=== PATIENT | female | born 1960 | race Caucasian/White ===

== ENCOUNTER → 2016-07-24 | Outpatient (REF) | payer OTHER | LOC: M LAB REF 12:48 | PROVIDERS: ATTEND Physician Assistant | DX: R30.0 Dysuria (principal) ==

== ENCOUNTER → 2017-03-22 | Outpatient (CLI) | payer BC ==
--- NOTE | 2017-03-22 13:31 | REP ---
PA and lateral chest: There are no comparisons. The lung montes are clear. The cardiac size is normal The devonte, mediastinum, and bony thorax are unremarkable. Impression: Negative PA and lateral chest. Signed by Sky Arguello MD 03/22/2017 01:23 P
[2017-03-22 16:44] LABS: BASO # 0.1 10^3/uL (0.0-0.2); BASO % 0.7 % (0.0-1.0); EOS # 0.1 10^3/uL (0.0-0.50); EOS % 1.6 % (0.0-3.0); IMMATURE GRANULOCYTE % 0.2 % (0-0); LYMPH # 2.2 10^3/uL (1.5-4.5); LYMPH % 26.6 % (24.0-44.0); MEAN CORPUSCULAR HEMOGLOBIN 31.1 pg (27.0-33.0); MEAN CORPUSCULAR VOLUME 94.4 fl (80.0-96.0); MONO # 0.5 10^3/uL (0.0-0.8); MONO % 6.5 % (0.0-5.0); NEUTROPHILS # 5.4 10^3/uL (1.8-7.7); NEUTROPHILS % 64.4 % (36.0-66.0); PLATELET COUNT, AUTOMATED 230 10^3/uL (150-450); RED CELL DISTRIBUTION WIDTH 12.7 % (11.5-14.5); WHITE BLOOD COUNT 8.4 10^3/uL (4.0-10.0)
[2017-03-22 17:02] LABS: ALBUMIN 4.1 GM/DL (3.2-5.2); ALBUMIN/GLOBULIN RATIO 1.46 (1.00-1.93); ALKALINE PHOSPHATASE 84 U/L (45-117); ALT/SGPT 34 U/L (12-78); ANION GAP 8 MEQ/L (8-16); AST/SGOT 18 U/L (7-37); BILIRUBIN,TOTAL 0.4 MG/DL (0.2-1.0); BLOOD UREA NITROGEN 16 MG/DL (7-18); CALCIUM LEVEL 9.4 MG/DL (8.5-10.1); CARBON DIOXIDE LEVEL 27 MEQ/L (21-32); CHLORIDE LEVEL 106 MEQ/L (98-107); CREATININE FOR GFR 1.36 MG/DL (0.55-1.02); FERRITIN 52 NG/ML (8-252); GLOMERULAR FILTRATION RATE 42.7 (>51); GLUCOSE, FASTING 85 MG/DL (70-105); SODIUM LEVEL 141 MEQ/L (136-145); T UPTAKE 31 % (30-39); THYROXINE (T4) 12.1 UG/DL (4.5-12.0); TOTAL PROTEIN 6.9 GM/DL (6.4-8.2)
[2017-03-22 17:04] LABS: VITAMIN B12 LEVEL > 2000 PG/ML
[2017-03-22 17:05] LABS: FOLATE 8.8 NG/ML
[2017-03-22 18:34] LABS: ERYTHROCYTE SEDIMENTATION RATE 4 mm/hr (0-30)
[2017-03-25 13:42] LABS: ALBUMIN % 65.4 % (55.8-66.1)
[2017-03-25 13:43] LABS: ALBUMIN 4.51 GM/DL (3.29-5.55); GAMMA GLOBULIN % 10.5 % (11.1-18.8)
[2017-03-26 00:06] LABS: Lyme Disease IgG/IgM Antibodie <0.91 ISR (0.00-0.90); Lyme Disease IgM Ab Quantitati <0.80 index (0.00-0.79)
== END ==
LOC: M WUC 12:37
PROVIDERS: ATTEND Physician Assistant Medical
DX: R53.83 Other fatigue (principal)

== ENCOUNTER 2020-06-21 12:46 | Inpatient (IN) | payer BC, OTHER ==
[~2020-06-21] VITALS: Ht 180.3 cm; Wt 82.1 kg
[2020-06-21] MEDS: LACTOBACILLUS ACIDOPHILUS CAP (BACID) PO SCH (09:00)
[2020-06-21] MEDS ORDERED: DOXY100C PO (13:00)
[2020-06-21] MEDS ORDERED: NS 500 ML IV ONE (13:45)
[2020-06-21 13:56] LABS: BASO % 0.3 % (0.0-1.0); EOS # 0.1 10^3/uL (0.0-0.5); EOS % 0.7 % (0.0-3.0); HEMATOCRIT 44.8 % (36.0-47.0); HEMOGLOBIN 14.7 g/dl (12.0-15.5); LYMPH # 1.9 10^3/uL (1.5-5.0); LYMPH % 13.4 % (24.0-44.0); MEAN CORPUSCULAR HEMOGLOBIN 31.3 pg (27.0-33.0); MEAN CORPUSCULAR HGB CONC 32.8 g/dl (32.0-36.5); MEAN CORPUSCULAR VOLUME 95.3 fl (80.0-96.0); MONO % 6.8 % (2.0-8.0); NEUTROPHILS # 10.9 10^3/uL (1.5-8.5); NEUTROPHILS % 78.4 % (36.0-66.0); PLATELET COUNT, AUTOMATED 218 10^3/uL (150-450); WHITE BLOOD COUNT 13.9 10^3/uL (4.0-10.0)
[2020-06-21 14:35] LABS: ALBUMIN 3.9 GM/DL (3.2-5.2); ALT/SGPT 353 U/L (12-78); BILIRUBIN,DIRECT 0.3 MG/DL (0.0-0.2); BILIRUBIN,TOTAL 0.8 MG/DL (0.2-1.0); CPK CREATINE PHOSPHOKINASE 210 U/L (26-192); LIPASE 4288 U/L (73-393); MB/CK RELATIVE INDEX 2.86 (< OR =4); TOTAL PROTEIN 6.7 GM/DL (6.4-8.2); TROPONIN I < 0.02 NG/ML (< 0.10)
--- NOTE | 2020-06-21 14:44 | REP ---
INDICATION: upper abd pain into back COMPARISON: None. TECHNIQUE: Real time atkins scale ultrasound examination using curved array transducer. FINDINGS: Liver demonstrates normal size and echotexture without focal hepatic lesion identified. The pancreas is normal in appearance. The gallbladder demonstrates cholelithiasis with mild wall thickening to approximately 3.5 mm. No pericholecystic fluid is appreciated. The common bile duct is upper limits of normal at 7.6 mm diameter. The right kidney is normal in reniform shape without hydronephrosis and measures 10.6 x 5.4 x 4.4 cm. No ascites in the visualized right upper quadrant. IMPRESSION: Cholelithiasis. Findings are equivocal for early acute cholecystitis and correlation is required. <Electronically signed by Robert Johnson > 06/21/20 [id number]
[2020-06-21] MEDS ORDERED: ISOVUE-370 76% 100ML VIAL As Ordered ONE (14:48)
[2020-06-21] MEDS ORDERED: SPIR-10 PO (15:11)
[2020-06-21] MEDS ORDERED: MINO100C80 PO (15:11)
--- NOTE | 2020-06-21 15:15 | REP ---
INDICATION: upper abd pain into back, elev lipase. COMPARISON: None TECHNIQUE: Axial contrast-enhanced images from the lung bases to the pubic symphysis using 100 cc Isovue 370 intravenous contrast material. Coronal and sagittal reformations obtained. This CT examination was performed using the following dose reduction techniques: Automated exposure control, adjustment of mA and/or kv according to the patient's size, and the use of iterative reconstruction technique. FINDINGS: Perihepatic inflammatory stranding primarily identified along the inferior aspect of the pancreatic body/tail is consistent with acute pancreatitis. The pancreas itself demonstrates normal homogeneous enhancement. No significant ascites or drainable collection/abscess noted. The gallbladder demonstrates mild wall thickening and subtle stranding which may reflect associated acute cholecystitis. No obvious gallstones are identified by CT evaluation and there is no evidence for biliary ductal dilatation or pancreatic duct dilatation. Liver, spleen, bilateral adrenal glands and kidneys are normal. The enteric system is without obstruction or acute inflammatory process. Sigmoid diverticulosis noted without acute diverticulitis. Pelvis demonstrates normal bladder and age-appropriate uterus/adnexa. No ascites. No free air. No adenopathy. Abdominal aorta without aneurysm or dissection. Musculoskeletal structures demonstrate age-related changes. Lung bases are clear. IMPRESSION: Findings compatible with acute pancreatitis. Possible associated early acute cholecystitis. Diverticulosis. <Electronically signed by Robert Johnson > 06/21/20 [id number]
[2020-06-21 15:22] LABS: MAGNESIUM LEVEL 2.2 MG/DL (1.8-2.4)
[2020-06-21] MEDS ORDERED: ONDANSETRON 4MG/2ML VIAL IV PRN (16:00)
[2020-06-21 16:21] LABS: RSV AMPLIFICATION NEGATIVE (NEGATIVE)
--- NOTE | 2020-06-21 16:21 | HPEPDOC ---
General Date of Admission 06/21/20 Date of Service: Jun 21, 2020 Chief Complaint The patient is a 60-year-old female admitted with a reason for visit of Abd Pain. Source: Patient Exam Limitations: No limitations Timing/Duration: Week(s) Severity: Moderate History of Present Illness Patient is 60 years old female with past history of smoking abuse presented hospital with epigastric pain. Patient stated that for past 4 weeks she has been having intermittent epigastric pain with radiation to the left upper abdominal area. Patient stated that usually she has this pain after fatty food, pain intense 8 out of 10 and associated with nausea and vomiting. Usually pain subsided after 3-4 hours and alleviated by vomiting. She reported that for past 4 weeks she has been having up to 4 episodes of these attacks. Today in the morning she developed severe epigastric pain with constant nausea. In ER patient was found to have leukocytosis of 13.9, total bilirubin 0.8, AST 261, ALT 353. CT abdomen showed Findings compatible with acute pancreatitis. Right upper quadrant ultrasound showed The gallbladder demonstrates cholelithiasis with mild wall thickening to approximately 3.5 mm. No pericholecystic fluid is appreciated. The common bile duct is upper limits of normal at 7.6 mm diameter. When I saw patient she reported that her pain subsided. Dr. Lewis recommended admission for possible cholecystectomy. Of note, patient received treatment with doxycycline for a right otitis media past 3 days. Home Medications Scheduled Doxycycline Hyclate (Doxycycline Hyclate) 100 Mg Capsule, 100 MG PO BID, (Reported) FOR 10 DAYS, STARTED 06/17 Minocycline HCl (Minocycline HCl) 100 Mg Capsule, 100 MG PO DAILY, (Reported) ON HOLD SINCE STARTING DOXYCYCLINE Spironolactone (Spironolactone) 25 Mg Tablet, 75 MG PO DAILY, (Reported) ON HOLD SINCE STARTING DOXYCYCLINE Allergies Coded Allergies: zinc (Verified Adverse Reaction, Mild, vomiting, 06/21/20) Past Medical History Medical History Tobacco abuse Family History Mother from lung cancer Social History * Smoker: current smoker Alcohol: Denies Drugs: denies A-FIB/CHADSVASC A-FIB History Current/History of A-Fib/PAF?: No Current PO Anticoag Therapy: No Review of Systems Constitutional: Denies: Chills, Fever Eyes: Denies: Pain ENT: Reports: Ear Pain; Denies: Head Aches Skin: Denies: Rash, Lesions Pulmonary: Denies: Dyspnea Cardiovascular: Denies: Chest Pain Gastrointestinal: Reports: Nausea, Vomiting, Abdominal Pain Genitourinary: Denies: Dysuria Hematologic: Denies: Bruising Endocrine: Denies: Polydipsia Musculoskeletal: Denies: Neck Pain Neurological: Denies: Weakness Psych: Reports: Mood Normal Physical Examination General Exam: Positive: Alert, Cooperative Eye Exam: Positive: PERRLA ENT Exam: Positive: Atraumatic; Negative: Tympanic Membranes Normal (bulging of right tympanic membrane, inflamed) Neck Exam: Positive: Supple; Negative: JVD Chest Exam: Positive: Clear to auscultation Heart Exam: Positive: Rate Normal Telemetry: Positive: No significant arrhythmia Abdomen Exam: Positive: Normal bowel sounds; Negative: Hepatospenomegaly Extremity Exam: Negative: Clubbing, Cyanosis Skin Exam: Positive: Nl turgor and temperature Neuro Exam: Positive: Strength at 5/5 X4 ext Psych Exam: Positive: Mental status NL Vital Signs Vital Signs Date Time Temp Pulse Resp B/P (MAP) Pulse Ox O2 Delivery O2 Flow Rate FiO2 06/21/20 15:18 97.5 93 18 145/72 (96) 98 Room Air Laboratory Data Labs 24H Laboratory Tests 2 06/21/20 13:10: Immature Granulocyte % (Auto) 0.4, Neutrophils (%) (Auto) 78.4H, Lymphocytes (%) (Auto) 13.4L, Monocytes (%) (Auto) 6.8, Eosinophils (%) (Auto) 0.7, Basophils (%) (Auto) 0.3, Neutrophils # (Auto) 10.9H, Lymphocytes # (Auto) 1.9, Monocytes # (Auto) 1.0H, Eosinophils # (Auto) 0.1, Basophils # (Auto) 0.0, Nucleated Red Blood Cells % (auto) 0.0, Magnesium Level 2.2, Total Bilirubin 0.8, Direct Bilirubin 0.3H, Aspartate Amino Transf (AST/SGOT) 261H, Alanine Aminotransferase (ALT/SGPT) 353H, Alkaline Phosphatase 115, Total Creatine Kinase 210H, Creatine Kinase MB 6.0H, Creatine Kinase MB Relative Index 2.86, Troponin I < 0.02, Total Protein 6.7, Albumin 3.9, Albumin/Globulin Ratio 1.4, Lipase 4288H 06/21/20 13:47: POC Glucose (Misc Panel) 111H, POC Sodium (Misc Panel) 142, POC Potassium (Misc Panel) 3.7, POC Chloride (Misc Panel) 107, POC Total CO2 (Misc Panel) 27.0, POC Blood Urea Nitrogen (Misc Panel 18, POC Ionized Calcium (Misc Panel) 5.1, POC Creatinine (Misc Panel) 1.2, POC Hematocrit (Misc Panel) 45.0 06/21/20 15:02: CBC/BMP Laboratory Tests 06/21/20 13:10 Assessment/Plan Patient is 60 years old female with past history of smoking abuse presented hospital with epigastric pain. Patient stated that for past 4 weeks she has been having intermittent epigastric pain with radiation to the left upper abdominal area. Patient stated that usually she has this pain after fatty food, pain intense 8 out of 10 and associated with nausea and vomiting. Usually pain subsided after 3-4 hours and alleviated by vomiting. She reported that for past 4 weeks she has been having up to 4 episodes of these attacks. Today in the morning she developed severe epigastric pain with constant nausea. In ER patient was found to have leukocytosis of 13.9, total bilirubin 0.8, AST 261, ALT 353. CT abdomen showed Findings compatible with acute pancreatitis. Right upper quadrant ultrasound showed The gallbladder demonstrates cholelithiasis with mild wall thickening to approximately 3.5 mm. No pericholecystic fluid is appreciated. The common bile duct is upper limits of normal at 7.6 mm diameter. When I saw patient she reported that her pain subsided. Dr. Lewis recommended admission for possible cholecystectomy. Of note, patient received treatment with doxycycline for a right otitis media past 3 days. Problems (1) Acute cholecystitis Status: Acute Problem Text: Ultrasound showed The gallbladder demonstrates cholelithiasis with mild wall thickening to approximately 3.5 mm. Findings are equivocal for early acute cholecystitis Patient has mild leukocytosis most likely reactive Pain management (2) Pancreatitis Status: Acute Problem Text: Patient has CT evidence of acute pancreatitis, she has elevated lipase level and left upper abdomen pain Most likely she developed gallstone pancreatitis Pain management Aggressive IV fluid Clear liquid diet for now (3) Gallstones Status: Acute Problem Text: Patient will need cholecystectomy Appreciate/agree with surgical consult (4) Otitis media Status: Acute Problem Text: I will change doxycycline to amoxicillin which is a first line treatment for otitis media Plan / VTE VTE Prophylaxis Ordered?: Yes MONICA CONDE DO Jun 21, 2020 16:21
[2020-06-21 16:43] LABS: HEPATITIS B SURFACE ANTIGEN NEGATIVE (NEGATIVE)
[2020-06-21 17:10] LABS: HEPATITIS C VIRUS ABY INDEX < 0.0 INDEX (<0.8)
[2020-06-21 17:11] LABS: HEPATITIS B CORE ANTIBODY IGM NEGATIVE (NEGATIVE)
[2020-06-21 17:13] LABS: HEPATITIS A ANTIBODY IGM NEGATIVE (NEGATIVE)
[2020-06-21 17:45] VITALS: BP 143/79
[2020-06-21] MEDS: LR 1,000 ML IV SCH ×2 (18:26→22:36)
[2020-06-21] MEDS: NICOTINE 21MG/24HR 1 EA TRANSDERMAL TD PRN (18:44)
--- NOTE | 2020-06-21 19:51 | ECGEPIP ---
[facility] - ED Test Date: 2020-06-21 Pat Name: DANIELLE MINAYA Department: Room: - Gender: Female Coordinator Of Evaluation: : 1960 Requested By: ROBIN Infante PA-C Order Number: [id number] Reading MD: Ricardo West Measurements Intervals [place] Rate: 92 P: 71 MI: 144 QRS: 42 QRSD: 74 T: 63 QT: 418 QTc: 516 Interpretive Statements Normal sinus rhythm Prolonged QT NO PRIORS FOR COMPARISON Electronically Signed on 06-21-2020 19:51:24 EDT by Ricardo West
[2020-06-21] MEDS: AUGMENTIN 875 MG TAB PO SCH (20:05)
[2020-06-21 22:00] VITALS: BP 136/76
[2020-06-22] MEDS: ACETAMINOPHEN TAB 650MG DOSE (2X325MG) PO PRN ×2 (02:12→07:41)
[2020-06-22] MEDS: LR 1,000 ML IV SCH ×5 (02:35→21:16)
[2020-06-22 06:00] VITALS: BP 138/93
[2020-06-22 06:42] LABS: HEMATOCRIT 38.2 % (36.0-47.0); MEAN CORPUSCULAR HEMOGLOBIN 31.6 pg (27.0-33.0); MEAN CORPUSCULAR VOLUME 95.7 fl (80.0-96.0); PLATELET COUNT, AUTOMATED 176 10^3/uL (150-450); RED BLOOD COUNT 3.99 10^6/uL (4.00-5.40); WHITE BLOOD COUNT 10.7 10^3/uL (4.0-10.0)
[2020-06-22 06:49] LABS: HEMOGLOBIN 12.6 g/dl (12.0-15.5)
[2020-06-22 06:59] LABS: ALT/SGPT 198 U/L (12-78); BILIRUBIN,TOTAL 0.7 MG/DL (0.2-1.0); BLOOD UREA NITROGEN 10 MG/DL (7-18); CALCIUM LEVEL 8.6 MG/DL (8.8-10.2); CARBON DIOXIDE LEVEL 27 MEQ/L (21-32); CHLORIDE LEVEL 113 MEQ/L (98-107); CREATININE FOR GFR 0.94 MG/DL (0.55-1.30); GLOMERULAR FILTRATION RATE > 60.0 (>45); GLUCOSE, FASTING 89 MG/DL (70-100); MAGNESIUM LEVEL 1.9 MG/DL (1.8-2.4); SODIUM LEVEL 145 MEQ/L (136-145); TOTAL PROTEIN 5.3 GM/DL (6.4-8.2)
[2020-06-22] MEDS: LACTOBACILLUS ACIDOPHILUS CAP (BACID) PO SCH (07:41)
[2020-06-22] MEDS: AUGMENTIN 875 MG TAB PO SCH ×2 (07:41→21:16)
[2020-06-22] MEDS: ENOXAPARIN 40MG/0.4ML SYRINGE (J1650 PER 10MG) SC SCH (07:42)
--- NOTE | 2020-06-22 12:35 | REP ---
INDICATION: rule out cbd stone. COMPARISON: Comparison sonography June 21, [address] study June 21, 2020.. TECHNIQUE: Axial and coronal T2 weighted scans are obtained. 3D MRCP acquisition is performed the maximum intensity projection images are provided in addition to source images. FINDINGS: There are multiple rounded filling defects in the gallbladder consistent with cholelithiasis. There is 1 large stone and multiple small subcentimeter calculi. No intrahepatic biliary ductal dilation is observed. No focal liver mass lesion is seen. Spleen is unremarkable. There is no evidence of ascites. No pancreatic lesion is observed. On MRCP images, there is a solitary filling defect in the distal common bile duct consistent with choledocholithiasis. On source images there is a question of 2 other punctate filling defects in the common hepatic duct segment. Common hepatic duct measures 6.6 mm in greatest diameter. No pancreatic ductal dilation is observed. Exam is otherwise unremarkable. IMPRESSION: Choledocholithiasis with 1 definite filling defect in the distal choledochocele and 2 possible tiny punctate filling defects in the common hepatic duct segment. Borderline CBD 6.6 mm. Cholelithiasis. Otherwise negative. <Electronically signed by Lupillo Osei > 06/22/20 [id number]
--- NOTE | 2020-06-22 13:15 | CR.PDOC ---
General Date of Consultation: Jun 22, [address] Dr Lewis. HISTORY OF PRESENT ILLNESS: The patient is a 60-year-old female who was admitted with acute cholecystitis and pancreatitis, Gen. surgery was consulted for consideration of cholecystectomy. The patient reports her symptoms began approximately 4 weeks ago when she ate, she developed nausea and vomiting with left upper abdomen discomfort radiating to the epigastric area. Her symptoms lasted about one day and then subsided. She did not seek any medical attention at that time. About 2 weeks ago she had a similar incident where she ate and developed discomfort in the same area and then vomited and her symptoms resolved. Again, she did not seek any medical attention. 2 days ago she had a similar episode recur where she ate, she developed abdominal pain in the left upper radiating to the epigastric area and also through to her back. She states the pain was worse so she went to urgent care. She was advised to seek evaluation in the emergency department, but on the way there she vomited and again her discomfort resolved. She did not go to the emergency department for evaluation at that time. Symptoms are usually associated with eating fatty foods. She presented on the morning of 06/21/20 to the emergency department for evaluation. She was noted to have leukocytosis of 13.9, total bilirubin 0.8, AST 261, ALT 353. CT abdomen indicated findings consistent with acute pancreatitis. Right upper quadrant ultrasound indicated cholelithiasis with wall thickening and common bile duct 7.6 mm. This morning, the patient states she has some mild discomfort in the left upper and epigastric area but otherwise denies nausea, vomiting. Overall she states she feels better. Tolerating clear liquids. She is up out of bed to the bathroom. ALLERGIES: Please see below. HOME MEDICATIONS: Please see below. PAST MEDICAL HISTORY: Tobacco use Cystic acne PAST SURGICAL HISTORY: Denies FAMILY HISTORY: Mother , lung cancer Father with history of pancreatic cancer Siblings with history of lung cancer SOCIAL HISTORY: Smoker Denies alcohol use. REVIEW OF SYSTEMS: As noted in HPI otherwise 10 point review systems unremarkable. PHYSICAL EXAMINATION: VITAL SIGNS: Please see below. GENERAL APPEARANCE: Currently up out of bed, no acute distress noted. HEENT: MMM RESPIRATORY: CTA CARDIOVASCULAR: S1-S2 regular rate and rhythm ABDOMEN: Soft, nondistended, mild tenderness with palpation is noted in the left upper quadrant and epigastric area. EXTREMITIES: Well-perfused, no edema NEUROLOGICAL: Alert and oriented 3. No focal deficits. Labs this morning indicate WBC 10.7. Total bilirubin 0.7 AST 83 ALT 198, LFTs have trended downward. ASSESSMENT/PLAN: Acute pancreatitis associated with cholelithiasis and acute cholecystitis. The patient is reviewed and examined as per Dr. Lewis this morning. Continue with clear liquids. PO Augmentin. Plan is for MRCP this morning to further evaluate for obstructing stone. Discussed with the patient that tentative plan would be for consideration of cholecystectomy Saturday as per Dr. Lewis pending review of MRCP results vs arrange for cholecystectomy as outpatient. Vital Signs/I&O Vital Signs Date Time Temp Pulse Resp B/P (MAP) Pulse Ox O2 Delivery O2 Flow Rate FiO2 06/22/20 06:00 99.3 101 18 138/93 (108) 94 Room Air I&O- Last 24 Hours up to 6 AM 06/22/20 06:00 Intake Total 3650 ml Output Total 1400 ml Balance 2250 ml Laboratory Data Labs 24H Laboratory Tests 2 06/21/20 13:10: Immature Granulocyte % (Auto) 0.4, Neutrophils (%) (Auto) 78.4H, Lymphocytes (%) (Auto) 13.4L, Monocytes (%) (Auto) 6.8, Eosinophils (%) (Auto) 0.7, Basophils (%) (Auto) 0.3, Neutrophils # (Auto) 10.9H, Lymphocytes # (Auto) 1.9, Monocytes # (Auto) 1.0H, Eosinophils # (Auto) 0.1, Basophils # (Auto) 0.0, Nucleated Red Blood Cells % (auto) 0.0, Magnesium Level 2.2, Total Bilirubin 0.8, Direct Bilirubin 0.3H, Aspartate Amino Transf (AST/SGOT) 261H, Alanine Aminotransferase (ALT/SGPT) 353H, Alkaline Phosphatase 115, Total Creatine Kinase 210H, Creatine Kinase MB 6.0H, Creatine Kinase MB Relative Index 2.86, Troponin I < 0.02, Total Protein 6.7, Albumin 3.9, Albumin/Globulin Ratio 1.4, Lipase 4288H, Hepatitis A IgM Antibody NEGATIVE, Hepatitis B Surface Antigen NEGATIVE, Hepatitis B Core IgM Antibody NEGATIVE, Hepatitis C Antibody Index < 0.0 06/21/20 13:47: POC Glucose (Misc Panel) 111H, POC Sodium (Misc Panel) 142, POC Potassium (Misc Panel) 3.7, POC Chloride (Misc Panel) 107, POC Total CO2 (Misc Panel) 27.0, POC Blood Urea Nitrogen (Misc Panel 18, POC Ionized Calcium (Misc Panel) 5.1, POC Creatinine (Misc Panel) 1.2, POC Hematocrit (Misc Panel) 45.0 06/21/20 15:02: Coronavirus (COVID-19)(PCR) NEGATIVE, Influenza Type A (RT-PCR) NEGATIVE, Influenza Type B (RT-PCR) NEGATIVE, Respiratory Syncytial Virus (PCR) NEGATIVE 06/22/20 05:56: Nucleated Red Blood Cells % (auto) 0.0, Magnesium Level 1.9, Total Bilirubin 0.7, Aspartate Amino Transf (AST/SGOT) 83H, Alanine Aminotransferase (ALT/SGPT) 198H, Alkaline Phosphatase 91, Total Protein 5.3#L, Albumin 3.0#L, Albumin/Globulin Ratio 1.3, Anion Gap 5L, Glomerular Filtration Rate > 60.0, Calcium Level 8.6L CBC/BMP Laboratory Tests 06/21/20 13:10 06/22/20 05:56 Microbiology Microbiology 06/21/20 Blood Culture, Received Pending 06/21/20 Blood Culture, Received Pending Allergies Coded Allergies: zinc (Verified Adverse Reaction, Mild, vomiting, 06/21/20) Home Medications Scheduled Doxycycline Hyclate (Doxycycline Hyclate) 100 Mg Capsule, 100 MG PO BID, (Reported) FOR 10 DAYS, STARTED 06/17 Minocycline HCl (Minocycline HCl) 100 Mg Capsule, 100 MG PO DAILY, (Reported) ON HOLD SINCE STARTING DOXYCYCLINE Spironolactone (Spironolactone) 25 Mg Tablet, 75 MG PO DAILY, (Reported) ON HOLD SINCE STARTING DOXYCYCLINE Jeannette Vallecillo Jun 22, 2020 13:15
[2020-06-22 14:00] VITALS: BP 128/75
--- NOTE | 2020-06-22 14:04 | IPNPDOC ---
Text Note Date of Service The patient was seen on 06/22/20. NOTE Subjective: No any events overnight. Patient stated that she has a good appetite and she would like to eat regular food Objective: GENERAL APPEARANCE: NAD HEENT: no scleral icterus, no JVD, EOMI CARDIOVASCULAR: S1S2 LUNGS: CTA ABDOMEN: soft & not tender w palpitation MUSCULOSKELETAL: no cyanosis, no swelling INTEGUMENT: no generalized pallor NEUROLOGICAL: cranial nerve function from 2-12 intact intact, follows commands, speech not dysarthric Assessment/Plan Patient is 60 years old female with past history of smoking abuse presented hospital with epigastric pain. Patient stated that for past 4 weeks she has been having intermittent epigastric pain with radiation to the left upper abdominal area. Patient stated that usually she has this pain after fatty food, pain i ntense 8 out of 10 and associated with nausea and vomiting. Usually pain subsided after 3-4 hours and alleviated by vomiting. She reported that for past 4 weeks she has been having up to 4 episodes of these attacks. Today in the morning she developed severe epigastric pain with constant nausea. In ER patient was found to have leukocytosis of 13.9, total bilirubin 0.8, AST 261, ALT 353. CT abdomen showed Findings compatible with acute pancreatitis. Right upper quadrant ultrasound showed The gallbladder demonstrates cholelithiasis with mild wall thickening to approximately 3.5 mm. No pericholecystic fluid is appreciated. The common bile duct is upper limits of normal at 7.6 mm diameter. When I saw patient she reported that her pain subsided. Dr. Lewis recommended admission for possible cholecystectomy. Of note, patient received treatment with doxycycline for a right otitis media past 3 days. Problems (1) Acute cholecystitis Ultrasound showed The gallbladder demonstrates cholelithiasis with mild wall thickening to approximately 3.5 mm. Findings are equivocal for early acute cholecystitis Patient has mild leukocytosis most likely reactive. Leukocytosis improved today Pain management (2) Pancreatitis Patient has CT evidence of acute pancreatitis, she has elevated lipase level and left upper abdomen pain Most likely she developed gallstone pancreatitis MRCP was done and showed Choledocholithiasis with 1 definite filling defect in the distal choledochocele and 2 possible tiny punctate filling defects in the common hepatic duct segment. Borderline CBD 6.6 mm. Cholelithiasis. Otherwise negative ERCP tomorrow. Laparoscopic cholecystectomy on Saturday Pain management Continue IV fluid Soft mechanical diet (3) Gallstones Patient will need cholecystectomy Appreciate/agree with surgical consult (4) Otitis media I changed doxycycline to amoxicillin which is a first line treatment for otitis media VS,Fishbone, I+O VS, Fishbone, I+O Laboratory Tests 06/22/20 05:56 Vital Signs Date Time Temp Pulse Resp B/P (MAP) Pulse Ox O2 Delivery O2 Flow Rate FiO2 06/22/20 06:00 99.3 101 18 138/93 (108) 94 Room Air I&O- Last 24 Hours up to 6 AM 06/22/20 06:00 Intake Total 3650 ml Output Total 1400 ml Balance 2250 ml MONICA CONDE DO Jun 22, 2020 14:04
[2020-06-22] MEDS: NICOTINE 21MG/24HR 1 EA TRANSDERMAL TD PRN (21:16)
[2020-06-22 22:00] VITALS: BP 143/87
[2020-06-22] MEDS: PERCOCET 5MG/325MG TAB PO PRN (22:05)
[2020-06-23] VITALS (7 sets, daily range): BP systolic 130–151; BP diastolic 74–87
[2020-06-23] MEDS: LR 1,000 ML IV SCH ×3 (05:22→23:36)
[2020-06-23 06:10] LABS: BASO # 0.1 10^3/uL (0.0-0.2); BASO % 0.7 % (0.0-1.0); EOS # 0.2 10^3/uL (0.0-0.5); EOS % 3.3 % (0.0-3.0); HEMATOCRIT 38.5 % (36.0-47.0); HEMOGLOBIN 12.6 g/dl (12.0-15.5); LYMPH # 2.8 10^3/uL (1.5-5.0); LYMPH % 39.7 % (24.0-44.0); MEAN CORPUSCULAR HEMOGLOBIN 31.2 pg (27.0-33.0); MEAN CORPUSCULAR HGB CONC 32.7 g/dl (32.0-36.5); MEAN CORPUSCULAR VOLUME 95.3 fl (80.0-96.0); MONO # 0.6 10^3/uL (0.0-0.8); MONO % 7.9 % (2.0-8.0); NEUTROPHILS # 3.4 10^3/uL (1.5-8.5); NEUTROPHILS % 48.1 % (36.0-66.0); PLATELET COUNT, AUTOMATED 175 10^3/uL (150-450); RED BLOOD COUNT 4.04 10^6/uL (4.00-5.40); WHITE BLOOD COUNT 7.1 10^3/uL (4.0-10.0)
[2020-06-23 06:38] LABS: ALT/SGPT 134 U/L (12-78); BILIRUBIN,TOTAL 0.6 MG/DL (0.2-1.0); BLOOD UREA NITROGEN 9 MG/DL (7-18); CALCIUM LEVEL 8.7 MG/DL (8.8-10.2); CARBON DIOXIDE LEVEL 27 MEQ/L (21-32); CHLORIDE LEVEL 111 MEQ/L (98-107); CREATININE FOR GFR 0.99 MG/DL (0.55-1.30); GLOMERULAR FILTRATION RATE > 60.0 (>45); GLUCOSE, FASTING 78 MG/DL (70-100); MAGNESIUM LEVEL 1.9 MG/DL (1.8-2.4); POTASSIUM SERUM 3.7 MEQ/L (3.5-5.1); SODIUM LEVEL 144 MEQ/L (136-145); TOTAL PROTEIN 5.5 GM/DL (6.4-8.2)
[2020-06-23] MEDS: ENOXAPARIN 40MG/0.4ML SYRINGE (J1650 PER 10MG) SC SCH (08:11)
[2020-06-23] MEDS: AUGMENTIN 875 MG TAB PO SCH ×2 (08:26→21:38)
[2020-06-23] MEDS: PERCOCET 5MG/325MG TAB PO PRN ×2 (08:26→21:39)
[2020-06-23] MEDS: LACTOBACILLUS ACIDOPHILUS CAP (BACID) PO SCH (08:26)
--- NOTE | 2020-06-23 11:17 | IPNPDOC ---
Text Note Date of Service The patient was seen on 06/23/20. NOTE General Surgery. Dr Lewis. HISTORY OF PRESENT ILLNESS: The patient is a 60-year-old female who was admitted with acute cholecystitis and pancreatitis, Gen. surgery was consulted for consideration of cholecystectomy. The patient reports her symptoms began approximately 4 weeks ago when she ate, she developed nausea and vomiting with left upper abdomen discomfort radiating to the epigastric area. Her symptoms lasted about one day and then subsided. She did not seek any medical attention at that time. About 2 weeks ago she had a similar incident where she ate and developed discomfort in the same area and then vomited and her symptoms resolved. Again, she did not seek any medical attention. 2 days ago she had a similar episode recur where she ate, she developed abdominal pain in the left upper radiating to the epigastric area and also through to her back. She states the pain was worse so she went to urgent care. She was advised to seek evaluation in the emergency department, but on the way there she vomited and again her discomfort resolved. She did not go to the emergency department for evaluation at that time. Symptoms are usually associated with eating fatty foods. She presented on the morning of 06/21/20 to the emergency department for evaluation. She was noted to have leukocytosis of 13.9, total bilirubin 0.8, AST 261, ALT 353. CT abdomen indicated findings consistent with acute pancreatitis. Right upper quadrant ultrasound indicated cholelithiasis with wall thickening and common bile duct 7.6 mm. This morning, the patient states she still has some mild discomfort in the left upper and epigastric area but otherwise denies nausea, vomiting. She states she ate a chicken sandwich last evening and had increased pain again. PHYSICAL EXAMINATION: VITAL SIGNS: Please see below. GENERAL APPEARANCE: Currently resting in bed, no acute distress. HEENT: MMM RESPIRATORY: CTA CARDIOVASCULAR: S1-S2 regular rate and rhythm ABDOMEN: Soft, nondistended, patient still with mild tenderness with palpation is noted in the left upper quadrant and epigastric area. EXTREMITIES: Well-perfused, no edema NEUROLOGICAL: Alert and oriented 3. No focal deficits. Labs this morning indicate WBC 7.1. LFTs with continued downward trend. ASSESSMENT/PLAN: Acute pancreatitis associated with cholelithiasis and acute cholecystitis. The patient is reviewed and examined as per Dr. Lewis this morning. MRCP yesterday consistent with filling defects in the common bile duct and hepatic duct, the patient was also seen by Dr. Osorio yesterday with consideration for ERCP today. PO Augmentin. Discussed with the patient that tentative plan would be for cholecystectomy Saturday as per Dr. Lewis. NPO after MN tonight. VS,Fishbone, I+O VS, Fishbone, I+O Laboratory Tests 06/23/20 05:42 Vital Signs Date Time Temp Pulse Resp B/P (MAP) Pulse Ox O2 Delivery O2 Flow Rate FiO2 06/23/20 09:00 16 06/23/20 08:26 Room Air 06/23/20 06:00 98.7 102 140/84 (102) 99 I&O- Last 24 Hours up to 6 AM 06/23/20 06:00 Intake Total 2880 ml Output Total 1200 ml Balance 1680 ml Jeannette Vallecillo Jun 23, 2020 11:17
[2020-06-23] MEDS ORDERED: ISOVUE-300 61% 50ML VIAL As Ordered ONE (13:01)
[2020-06-23] MEDS ORDERED: dexameTHASONE 4 MG/ML 1ML VIAL (J1100 PER 1MG) As Ordered ONE (13:45)
[2020-06-23] MEDS ORDERED: propofoL 200 MG/20 ML VIAL As Ordered ONE (13:45)
[2020-06-23] MEDS ORDERED: ONDANSETRON 4MG/2ML VIAL As Ordered ONE (13:45)
[2020-06-23] MEDS ORDERED: MIDAZOLAM INJ 2MG/2ML VIAL (J2250 PER 1MG) As Ordered ONE (13:45)
[2020-06-23] MEDS ORDERED: LIDOCAINE 2% 100MG/5ML SDV (FOR ANES.) As Ordered ONE (13:45)
[2020-06-23] MEDS ORDERED: fentaNYL 100 MCG/2 ML INJECTION (J3010) As Ordered ONE (13:45)
--- NOTE | 2020-06-23 14:35 | CR.PDOC ---
General Date of Consultation: Jun 22, 2020 Referring Provider: LELIA LEWIS MD Attending Physician: ARIADNA BARBOSA MD Consultation Referring physician / PCP : Dr. Martinez / Dr. Lewis Reason for consult: HPI: 60 years old female patient with chronic tobacco smoking, was admitted to [facility] for epigastric abdominal pain with abnormal liver test and MRCP showing CBD stones and gallstones with pancreatitis. GI was consulted for ERCP. Patient states that for past 4 weeks she has been having intermittent epigastric pain with radiation to the left upper abdominal area, usually precipitated by fatty food, pain intense 8 out of 10 and associated with nausea and vomiting. Usually pain subsided after 3-4 hours and alleviated by vomiting. In ER patient was found to have leukocytosis of 13.9, total bilirubin 0.8, AST 261, ALT 353. Pertinent negative GI symptoms: Patient denies diarrhea, loss of appetite, early satiety or unintentional weight loss, hematemesis, melena or hematochezia. Review of Systems: GI: as stated above CVS: No chest pain, No palpitations, No leg swelling RS: No Shortness of breath, No Wheezing BODY DIE MAKER: No loss of consciousness, No focal motor weakness., Hematology: No easy bruising, No gum bleeding, Musculoskeletal: No joint pain, ambulating well. : No blood inurine, No burning sensation of the urine ENT: No ear discharge/ pain, No dysphagia. Eyes: No photophobia. Skin: No rash Home medications: reviewed. No Plavix and No anticoagulants Medical h/o: As above. Surgical h/o: None on abdomen. Social h/o: Denies Alcohol, smoking, IVDA/ drugs. Family h/o of GI cancers - None Prior Endoscopies: None in [facility]. Prior GI evaluation: None in [facility] Exam: Vitals: reviewed General: Alert and oriented x 3, not in acute distress HEENT: No pallor, no icterus. Normal oropharynx, NO cervical lymphadenopathy. Chest: symmetric with bilateral air entry, CVS: S1, S2 heard, Abdomen: non-distended, soft, non-tender, no rigidity or guarding, no palpable masses, normal bowel sounds heard. Rectal exam: Patient refused / Deferred at this time in view of scheduled colonoscopy. Extremities: pulses palpable, no pedal edema, BODY DIE MAKER: no focal motor or sensory deficits. Moves all extremities Skin: no rash. Labs: reviewed. Imaging: reviewed. CT abdomen showed Findings compatible with acute pancreatitis. Right upper quadrant ultrasound showed The gallbladder demonstrates cholelithiasis with mild wall thickening to approximately 3.5 mm. No pericholecystic fluid is appreciated. The common bile duct is upper limits of normal at 7.6 mm diameter. When I saw patient she reported that her pain subsided. Dr. Lewis recommended admission for possible cholecystectomy. Of note, patient received treatment with doxycycline for a right otitis media past 3 days Impression: -- Epigastric pain with nausea and vomiting labs showing abnormal liver tests and elevated lipase Likely Biliary pancreatitis and Retained CBD stone. Recommendations: -- Patient educated about the prior test results and all questions answered. -- IV fluids prefer ringers lactate for biliary pancreatitis -- NPO for procedure. -- Antibiotics as per Primary team/ surgery. -- Will schedule for ERCP. Patient educated about the procedure(s), indications, risks (including but not limited to acute pancreatitis, bleeding, infection, perforation, anesthesia risks, including ), benefits and all alternatives including conservative measures without intervention. Patient verbalized understanding and consented for the procedure(s). -- Please follow operative note for post procedure recommendations. -- Plan of care educated to patient and patient verbalized understanding and agreed. All questions answered. -- Recommendations communicated to primary team. Patient to follow with PCP upon discharge for routine medical care. Vital Signs/I&O Vital Signs Date Time Temp Pulse Resp B/P (MAP) Pulse Ox O2 Delivery O2 Flow Rate FiO2 06/23/20 09:00 16 06/23/20 08:26 Room Air 06/23/20 06:00 98.7 102 140/84 (102) 99 I&O- Last 24 Hours up to 6 AM 06/23/20 06:00 Intake Total 2880 ml Output Total 1200 ml Balance 1680 ml Laboratory Data Labs 24H Laboratory Tests 2 06/23/20 05:42: Immature Granulocyte % (Auto) 0.3, Neutrophils (%) (Auto) 48.1, Lymphocytes (%) (Auto) 39.7, Monocytes (%) (Auto) 7.9, Eosinophils (%) (Auto) 3.3H, Basophils (%) (Auto) 0.7, Neutrophils # (Auto) 3.4, Lymphocytes # (Auto) 2.8, Monocytes # (Auto) 0.6, Eosinophils # (Auto) 0.2, Basophils # (Auto) 0.1, Nucleated Red Blood Cells % (auto) 0.0, Anion Gap 6L, Glomerular Filtration Rate > 60.0, Calcium Level 8.7L, Magnesium Level 1.9, Total Bilirubin 0.6, Aspartate Amino Transf (AST/SGOT) 37, Alanine Aminotransferase (ALT/SGPT) 134H, Alkaline Phosphatase 81, Total Protein 5.5L, Albumin 3.0L, Albumin/Globulin Ratio 1.2 CBC/BMP Laboratory Tests 06/23/20 05:42 Microbiology Microbiology 06/21/20 Blood Culture - Preliminary, Resulted No growth after 24 hours . All specim... 06/21/20 Blood Culture - Preliminary, Resulted No growth after 24 hours . All specim... Allergies Coded Allergies: zinc (Verified Adverse Reaction, Mild, vomiting, 06/21/20) Home Medications Scheduled Doxycycline Hyclate (Doxycycline Hyclate) 100 Mg Capsule, 100 MG PO BID, (Reported) FOR 10 DAYS, STARTED 06/17 Minocycline HCl (Minocycline HCl) 100 Mg Capsule, 100 MG PO DAILY, (Reported) ON HOLD SINCE STARTING DOXYCYCLINE Spironolactone (Spironolactone) 25 Mg Tablet, 75 MG PO DAILY, (Reported) ON HOLD SINCE STARTING DOXYCYCLINE ARIADNA BARBOSA MD Jun 23, 2020 14:35
[2020-06-23] MEDS ORDERED: ROCURONIUM BROMIDE 50 MG/5 ML VIAL As Ordered ONE (14:36)
[2020-06-23] MEDS ORDERED: GLUCAGON INJ 1MG VIAL As Ordered ONE (15:14)
[2020-06-23] MEDS ORDERED: SUGAMMADEX SODIUM 500 MG/5 ML VIAL (BRIDION) As Ordered ONE (15:21)
--- NOTE | 2020-06-23 15:26 | IPNPDOC ---
Text Note Date of Service The patient was seen on 06/23/20. NOTE Subjective: Patient complains of left upper quadrant pain after eating a sand wich yesterday. In the morning she had very mild left upper pain. No fever, no chills Objective: GENERAL APPEARANCE: NAD HEENT: no scleral icterus, no JVD, EOMI, mild bulging of right tympanic membrane CARDIOVASCULAR: S1S2 LUNGS: CTA ABDOMEN: soft & not tender w palpitation MUSCULOSKELETAL: no cyanosis, no swelling INTEGUMENT: no generalized pallor NEUROLOGICAL: cranial nerve function from 2-12 intact intact, follows commands, speech not dysarthric Assessment/Plan Patient is 60 years old female with past history of smoking abuse presented hospital with epigastric pain. Patient stated that for past 4 weeks she has been having intermittent epigastric pain with radiation to the left upper abdominal area. Patient stated that usually she has this pain after fatty food, pain intense 8 out of 10 and associated with nausea and vomiting. Usually pain subsided after 3-4 hours and alleviated by vomiting. She reported that for past 4 weeks she has been having up to 4 episodes of these attacks. Today in the morning she developed severe epigastric pain with constant nausea. In ER patient was found to have leukocytosis of 13.9, total bilirubin 0.8, AST 261, ALT 353. CT abdomen showed Findings compatible with acute pancreatitis. Right upper quadrant ultrasound showed The gallbladder demonstrates cholelithiasis with mild wall thickening to approximately 3.5 mm. No pericholecystic fluid is a ppreciated. The common bile duct is upper limits of normal at 7.6 mm diameter. When I saw patient she reported that her pain subsided. Dr. Lewis recommended admission for possible cholecystectomy. Of note, patient received treatment with doxycycline for a right otitis media past 3 days. Problems (1) Acute cholecystitis Ultrasound showed The gallbladder demonstrates cholelithiasis with mild wall thickening to approximately 3.5 mm. Findings are equivocal for early acute cholecystitis Patient has mild leukocytosis most likely reactive. Leukocytosis resolved Pain management (2) Pancreatitis Patient has CT evidence of acute pancreatitis, she has elevated lipase level and left upper abdomen pain Most likely she developed gallstone pancreatitis MRCP was done and showed Choledocholithiasis with 1 definite filling defect in the distal choledochocele and 2 possible tiny punctate filling defects in the common hepatic duct segment. Borderline CBD 6.6 mm. Cholelithiasis. Otherwise negative ERCP today. Laparoscopic cholecystectomy on Saturday Pain management Continue IV fluid (3) Gallstones Patient will need cholecystectomy The surgical team will proceed with cholecystectomy on Saturday (4) Otitis media Improved I changed doxycycline to amoxicillin which is a first line treatment for otitis media VS,Fishbone, I+O VS, Fishbone, I+O Laboratory Tests 06/23/20 05:42 Vital Signs Date Time Temp Pulse Resp B/P (MAP) Pulse Ox O2 Delivery O2 Flow Rate FiO2 06/23/20 09:00 16 06/23/20 08:26 Room Air 06/23/20 06:00 98.7 102 140/84 (102) 99 I&O- Last 24 Hours up to 6 AM 06/23/20 06:00 Intake Total 2880 ml Output Total 1200 ml Balance 1680 ml MONICA CONDE Jun 23, 2020 15:26
--- NOTE | 2020-06-23 16:01 | REP ---
INDICATION: ERCP. Choledocholithiasis on MRCP images. COMPARISON: Comparison MRCP study June 22, 2020.. TECHNIQUE: One hundred three views. 82.8 seconds of fluoroscopy is reported. FINDINGS: A sequence of 103 last image hold fluoroscopically obtained spot radiographs of the right upper quadrant document endoscopic cannulation and contrast injection of the common bile duct with balloon catheter manipulation. Some reflux into the gallbladder shows filling defects in the gallbladder consistent with cholelithiasis. No definite filling defects in the common bile duct at the end of the study. IMPRESSION: ERCP images. <Electronically signed by Lupillo Osei > 06/23/20 [id number]
[2020-06-23] MEDS ORDERED: ONDANSETRON 4MG/2ML VIAL IV PRN (16:05)
[2020-06-23] MEDS ORDERED: LR 1,000 ML IV SCH (16:05)
[2020-06-23] MEDS ORDERED: oxyCODONE 5MG TAB PO PRN (16:05)
[2020-06-23] MEDS ORDERED: fentaNYL 100 MCG/2 ML INJECTION (J3010) IV PRN (16:05)
--- NOTE | 2020-06-23 16:08 | ROOR ---
Patient Name: Becky Snyder Procedure Date: 06/23/2020 2:33 PM Date of : 1960 Age: 60 Gender: Female Note Status: Finalized Procedure: ERCP Indications: For therapy of bile duct stone(s) Providers: Sachin Osorio MD Referring MD: Nick Lewis MD Requesting Provider: Medicines: Monitored Anesthesia Care Complications: No immediate complications. Procedure: Pre-Anesthesia Assessment: - Prior to the procedure, a History and Physical was performed, and patient medications and allergies were reviewed. The patient is competent. The risks and benefits of the procedure and the sedation options and risks were discussed with the patient. All questions were answered and informed consent was obtained. Patient identification and proposed procedure were verified by the physician, the nurse and the anesthesiologist in the procedure room. Mental Status Examination: alert and oriented. Airway Examination: normal oropharyngeal airway and neck mobility. Respiratory Examination: clear to auscultation. CV Examination: normal. Prophylactic Antibiotics: The patient does not require prophylactic antibiotics. Prior Anticoagulants: The patient has taken no previous anticoagulant or antiplatelet agents. ASA Grade Assessment: II - A patient with mild systemic disease. After reviewing the risks and benefits, the patient was deemed in satisfactory condition to undergo the procedure. The anesthesia plan was to use monitored anesthesia care (MAC). Immediately prior to administration of medications, the patient was re-assessed for adequacy to receive sedatives. The heart rate, respiratory rate, oxygen saturations, blood pressure, adequacy of pulmonary ventilation, and response to care were monitored throughout the procedure. The physical status of the patient was re-assessed after the procedure. The Duodenoscope was introduced through the mouth, and advanced to the duodenum and used to inject contrast into the bile duct. The ERCP was accomplished without difficulty. The patient tolerated the procedure well. Findings: The licensed massage therapist film was normal. The esophagus was successfully intubated under direct vision. The scope was advanced to a normal major papilla in the descending duodenum without detailed examination of the pharynx, larynx and associated structures, and upper GI tract. The upper GI tract was grossly normal. A 0.035 inch x 260 cm straight Hydra Jagwire was passed into the biliary tree. The short-nosed traction sphincterotome was passed over the guidewire and the bile duct was then deeply cannulated. Contrast was injected. I personally interpreted the bile duct images. Ductal flow of contrast was adequate. Image quality was adequate. Contrast extended to the entire biliary tree. The lower third of the main bile duct contained filling defect(s) thought to be a stone. The main bile duct was mildly dilated and diffusely dilated, with a stone causing an obstruction. The largest diameter was 9 mm. Biliary sphincterotomy was made with a monofilament traction (standard) sphincterotome using ERBE electrocautery. There was no post-sphincterotomy bleeding. The biliary tree was swept with a 9 mm balloon starting at the bifurcation. One stone was removed. No stones remained. Occlusion cholangiogram at the end of the procedure did not show any residual filling defects. Pancreatic duct was neither cannulated nor opacified. Impression: - A filling defect consistent with a stone was seen on the cholangiogram. - The entire main bile duct was mildly dilated, with a stone causing an obstruction. - Choledocholithiasis was found. Complete removal was accomplished by biliary sphincterotomy and balloon extraction. - A biliary sphincterotomy was performed. - The biliary tree was swept. Recommendation: - The patient will be observed post-procedure, until all discharge criteria are met. - Patient has a contact number available for emergencies. The signs and symptoms of potential delayed complications were discussed with the patient. Return to normal activities tomorrow. Written discharge instructions were provided to the patient. - Avoid aspirin and nonsteroidal anti-inflammatory medicines for 5 days. - Clear liquid diet today, then advance as tolerated to high fiber diet. - Surgical consultation for consideration of cholecystectomy at the next available appointment. - Telephone GI clinic if symptomatic. - Return to primary care physician. Procedure Code(s): --- Professional --- 64411, Endoscopic retrograde cholangiopancreatography (ERCP); with removal of calculi/debris from biliary/pancreatic duct(s) 94818, Endoscopic retrograde cholangiopancreatography (ERCP); with sphincterotomy/papillotomy 20189, 26, Endoscopic catheterization of the biliary ductal system, radiological supervision and interpretation Diagnosis Code(s): --- Professional --- K80.51, Calculus of bile duct without cholangitis or cholecystitis with obstruction R93.2, Abnormal findings on diagnostic imaging of liver and biliary tract CPT copyright 2019 [employer]. All rights reserved. The codes documented in this report are preliminary and upon division officer weapons department review may be revised to meet current compliance requirements. Sachin Osorio MD Sachin Osorio MD 06/23/2020 4:07:55 PM Electronically signed by Sachin Osorio MD Number of Addenda: 0 Note Initiated On: 06/23/2020 2:33 PM Estimated Blood Loss: Estimated blood loss: none.
[2020-06-23] MEDS ORDERED: LR 500 ML IV ONE (17:45)
[2020-06-23] MEDS: NICOTINE 21MG/24HR 1 EA TRANSDERMAL TD PRN (18:38)
[2020-06-24 01:30] VITALS: BP 107/70
[2020-06-24 05:30] VITALS: BP 109/70
[2020-06-24 06:20] LABS: BASO % 0.1 % (0.0-1.0); HEMATOCRIT 35.6 % (36.0-47.0); HEMOGLOBIN 11.8 g/dl (12.0-15.5); LYMPH # 1.1 10^3/uL (1.5-5.0); LYMPH % 14.6 % (24.0-44.0); MEAN CORPUSCULAR HEMOGLOBIN 31.8 pg (27.0-33.0); MEAN CORPUSCULAR HGB CONC 33.1 g/dl (32.0-36.5); MONO # 0.4 10^3/uL (0.0-0.8); MONO % 5.5 % (2.0-8.0); NEUTROPHILS # 6.2 10^3/uL (1.5-8.5); NEUTROPHILS % 79.5 % (36.0-66.0); PLATELET COUNT, AUTOMATED 155 10^3/uL (150-450); RED BLOOD COUNT 3.71 10^6/uL (4.00-5.40); WHITE BLOOD COUNT 7.8 10^3/uL (4.0-10.0)
[2020-06-24 06:40] LABS: ALBUMIN 3.1 GM/DL (3.2-5.2); BILIRUBIN,TOTAL 0.4 MG/DL (0.2-1.0); CALCIUM LEVEL 8.6 MG/DL (8.8-10.2); CREATININE FOR GFR 1.02 MG/DL (0.55-1.30); GLOMERULAR FILTRATION RATE 58.7 (>45); MAGNESIUM LEVEL 1.9 MG/DL (1.8-2.4); POTASSIUM SERUM 4.2 MEQ/L (3.5-5.1); TOTAL PROTEIN 6.2 GM/DL (6.4-8.2)
[2020-06-24] MEDS ORDERED: CEPACOL LOZENGE PO PRN (06:45)
[2020-06-24] MEDS: ENOXAPARIN 40MG/0.4ML SYRINGE (J1650 PER 10MG) SC SCH (07:24)
[2020-06-24] MEDS ORDERED: AMPICILLIN SOD/SULBACTAM SOD 3 GM in D5W MINI-BAG PLUS 100 ML IV ONE ×2 (07:30→15:00)
[2020-06-24] MEDS ORDERED: INDOCYANINE GREEN 25MG VIAL (IC-GREEN) IV ONE ×2 (07:30→12:00)
[2020-06-24] MEDS ORDERED: SODIUM CHLORIDE 0.9% INJ 10 ML SYR IV ONE ×2 (07:35→12:00)
[2020-06-24] MEDS: AUGMENTIN 875 MG TAB PO SCH (08:01)
[2020-06-24] MEDS: LR 1,000 ML IV SCH (08:01)
[2020-06-24] MEDS: LACTOBACILLUS ACIDOPHILUS CAP (BACID) PO SCH (08:01)
[2020-06-24] MEDS ORDERED: BUPIVACAINE HCL 0.25% 30ML VIAL As Ordered ONE (10:18)
[2020-06-24] MEDS ORDERED: LIDOCAINE 1% SDV 30ML VIAL As Ordered ONE (10:18)
[2020-06-24] MEDS ORDERED: ONDANSETRON 4MG/2ML VIAL As Ordered ONE (10:30)
[2020-06-24] MEDS ORDERED: ACETAMINOPHEN 1000MG 100ML IV BTL (OFIRMEV) (J0131 PER 10MG) As Ordered ONE (10:30)
[2020-06-24] MEDS ORDERED: dexameTHASONE 4 MG/ML 1ML VIAL (J1100 PER 1MG) As Ordered ONE (10:30)
[2020-06-24] MEDS ORDERED: ROCURONIUM BROMIDE 50 MG/5 ML VIAL As Ordered ONE (10:30)
[2020-06-24] MEDS ORDERED: fentaNYL 100 MCG/2 ML INJECTION (J3010) As Ordered ONE (10:30)
[2020-06-24] MEDS ORDERED: propofoL 200 MG/20 ML VIAL As Ordered ONE (10:30)
[2020-06-24] MEDS ORDERED: MIDAZOLAM INJ 2MG/2ML VIAL (J2250 PER 1MG) As Ordered ONE (10:30)
[2020-06-24] MEDS ORDERED: LIDOCAINE 2% 100MG/5ML SDV (FOR ANES.) As Ordered ONE (10:30)
--- NOTE | 2020-06-24 10:33 | IPNPDOC ---
Text Note Date of Service The patient was seen on 06/24/20. NOTE Patient underwent ERCP with stone extraction and sphincterotomy yesterday. Doing well from this. Denies any severe abdominal discomfort, nausea or vomiting. Afebrile. She seen in the preoperative area. She is scheduled to undergo laparoscopic cholecystectomy today. Vital signs stable On examination She is sitting up on the bed looks very comfortable Skin is warm and dry, no jaundice Anicteric sclerae Abdomen is soft, nondistended, no tenderness Impression and plan: Acute biliary pancreatitis to resolve Choledocholithiasis status post ERCP, stone extraction and sphincterotomy Cholelithiasis Patient is scheduled to undergo laparoscopic cholecystectomy today. I discussed with the patient the details of the proposed procedure, the benefits of performing the procedure, the most common risks on doing the procedure. This may include risks from general anesthesia which will be discussed further by anesthesia, risk from laparoscopy including bowel injury, vascular injury, risk from gallbladder surgery which may include bile duct injury, bile leakage as well as injury to nearby structures. I have given her a chance to ask questions, voice out concerns. Patient has agreed to proceed VS,Betzaida, I+O VS, Betzaida, I+O Laboratory Tests 06/24/20 06:04 Vital Signs Date Time Temp Pulse Resp B/P (MAP) Pulse Ox O2 Delivery O2 Flow Rate FiO2 06/24/20 05:30 98.8 84 20 109/70 (83) 95 Room Air I&O- Last 24 Hours up to 6 AM 06/24/20 06:00 Intake Total 2600 ml Output Total 0 ml Balance 2600 ml LELIA WILDER MD Jun 24, 2020 10:33
[2020-06-24] MEDS ORDERED: LACRILUBE (AKWA TEARS) OPHTH OINT 3.5 GM As Ordered ONE (10:34)
--- NOTE | 2020-06-24 11:01 | IPNPDOC ---
Text Note Date of Service The patient was seen on 06/24/20. NOTE Subjective: No any acute events overnight. ERCP was done yesterday, patient t laurarates procedure well. Objective: GENERAL APPEARANCE: NAD HEENT: no scleral icterus, no JVD, EOMI, no inflammation seen in the right ear CARDIOVASCULAR: S1S2 LUNGS: CTA ABDOMEN: soft & not tender w palpitation MUSCULOSKELETAL: no cyanosis, no swelling INTEGUMENT: no generalized pallor NEUROLOGICAL: cranial nerve function from 2-12 intact intact, follows commands, speech not dysarthric Assessment/Plan Patient is 60 years old female with past history of smoking abuse presented hospital with epigastric pain. Patient stated that for past 4 weeks she has been having intermittent epigastric pain with radiation to the left upper abdominal area. Patient stated that usually she has this pain after fatty food, pain intense 8 out of 10 and associated with nausea and vomiting. Usually pain subsi ded after 3-4 hours and alleviated by vomiting. She reported that for past 4 weeks she has been having up to 4 episodes of these attacks. Today in the morning she developed severe epigastric pain with constant nausea. In ER patient was found to have leukocytosis of 13.9, total bilirubin 0.8, AST 261, ALT 353. CT abdomen showed Findings compatible with acute pancreatitis. Right upper quadrant ultrasound showed The gallbladder demonstrates cholelithiasis with mild wall thickening to approximately 3.5 mm. No pericholecystic fluid is appreciated. The common bile duct is upper limits of normal at 7.6 mm diameter. When I saw patient she reported that her pain subsided. Dr. Lewis recommended admission for possible cholecystectomy. Of note, patient received treatment with doxycycline for a right otitis media past 3 days. Problems (1) Acute cholecystitis Ultrasound showed The gallbladder demonstrates cholelithiasis with mild wall thickening to approximately 3.5 mm. Findings are equivocal for early acute cholecystitis Patient has mild leukocytosis most likely reactive. Leukocytosis resolved after improving of pancreatitis and otitis media Pain management Dr. Lewis will proceed with laparoscopic cholecystectomy today (2) Pancreatitis Patient has CT evidence of acute pancreatitis, she has elevated lipase level and left upper abdomen pain Most likely she developed gallstone pancreatitis MRCP was done and showed Choledocholithiasis with 1 definite filling defect in the distal choledochocele and 2 possible tiny punctate filling defects in the common hepatic duct segment. Borderline CBD 6.6 mm. Cholelithiasis. Otherwise negative ERCP was done on 06/23/20. Laparoscopic cholecystectomy today Pain management (3) Gallstones Patient will need cholecystectomy The surgical team will proceed with cholecystectomy today (4) Otitis media Marked improved today I changed doxycycline to amoxicillin which is a first line treatment for otitis media VS,Fishbone, I+O VS, Fishbone, I+O Laboratory Tests 06/24/20 06:04 Vital Signs Date Time Temp Pulse Resp B/P (MAP) Pulse Ox O2 Delivery O2 Flow Rate FiO2 06/24/20 05:30 98.8 84 20 109/70 (83) 95 Room Air I&O- Last 24 Hours up to 6 AM 06/24/20 06:00 Intake Total 2600 ml Output Total 0 ml Balance 2600 ml MONICA CONDE DO Jun 24, 2020 11:01
[2020-06-24] MEDS ORDERED: ePHEDrine SULFATE 25 MG/5 ML(5MG/ML) SYRINGE As Ordered ONE (11:45)
[2020-06-24] MEDS ORDERED: KETOROLAC 60MG 2ML VIAL As Ordered ONE (11:57)
[2020-06-24] MEDS ORDERED: SUGAMMADEX SODIUM 500 MG/5 ML VIAL (BRIDION) As Ordered ONE (11:57)
[2020-06-24] MEDS ORDERED: oxyCODONE 5MG TAB PO PRN (12:30)
[2020-06-24] MEDS ORDERED: LR 1,000 ML IV SCH (12:30)
[2020-06-24] MEDS ORDERED: fentaNYL 100 MCG/2 ML INJECTION (J3010) IV PRN (12:30)
[2020-06-24] MEDS ORDERED: HYDROMORPHONE HCL 0.5 MG/ 0.5 ML SYRINGE (J1170 PER 1) IV PRN (12:30)
[2020-06-24] MEDS ORDERED: ONDANSETRON 4MG/2ML VIAL IV PRN (12:30)
[2020-06-24 14:00] VITALS: BP 113/70
[2020-06-24] MEDS ORDERED: AMOX875T2 PO (14:33)
[2020-06-24] MEDS ORDERED: ACET1TAB55 PO (14:33)
--- NOTE | 2020-06-24 15:43 | DS.PDOC ---
Discharge Summary General Date of Admission Jun 21, 2020 at 15:58 Date of Discharge 06/24/20 Discharge Summary PROCEDURES PERFORMED DURING STAY: ERCP, laparoscopic cholecystectomy ADMITTING DIAGNOSES: Acute cholecystitis Pancreatitis Gallstones Otitis media DISCHARGE DIAGNOSES: Acute cholecystitis Pancreatitis Gallstones Otitis media COMPLICATIONS/CHIEF COMPLAINT: Gallstones,Pancreatitis. HISTORY OF PRESENT ILLNESS: Patient is 60 years old female with past history of smoking abuse presented hospital with epigastric pain. Patient stated that for past 4 weeks she has been having intermittent epigastric pain with radiation to the left upper abdominal area. Patient stated that usually she has this pain after fatty food, pain intense 8 out of 10 and associated with nausea and vomiting. Usually pain subsided after 3-4 hours and alleviated by vomiting. She reported that for past 4 weeks she has been having up to 4 episodes of these attacks. Today in the morning she developed severe epigastric pain with constant nausea. In ER patient was found to have leukocytosis of 13.9, total bilirubin 0.8, AST 261, ALT 353. CT abdomen showed Findings compatible with acute pancreatitis. Right upper quadrant ultrasound showed The gallbladder demon strates cholelithiasis with mild wall thickening to approximately 3.5 mm. No pericholecystic fluid is appreciated. The common bile duct is upper limits of normal at 7.6 mm diameter. When I saw patient she reported that her pain subsided. Dr. Lewis recommended admission for possible cholecystectomy. Of note, patient received treatment with doxycycline for a right otitis media past 3 days. HOSPITAL COURSE: During the hospital stay following issue addressed (1) Acute cholecystitis Ultrasound showed The gallbladder demonstrates cholelithiasis with mild wall thickening to approximately 3.5 mm. Findings are equivocal for early acute cholecystitis Patient has mild leukocytosis most likely reactive. Leukocytosis resolved after improving of pancreatitis and otitis media Pain management Dr. Lewis did laparoscopic cholecystectomy today. Patient tolerates clear li quid diet well after surgery, no nausea no vomiting (2) Pancreatitis Patient has CT evidence of acute pancreatitis, she has elevated lipase level and left upper abdomen pain Most likely she developed gallstone pancreatitis MRCP was done and showed Choledocholithiasis with 1 definite filling defect in the distal choledochocele and 2 possible tiny punctate filling defects in the common hepatic duct segment. Borderline CBD 6.6 mm. Cholelithiasis. Otherwise negative ERCP was done on 06/23/20. Laparoscopic cholecystectomy today Pain management (3) Gallstones The surgical team proceeded with cholecystectomy today (4) Otitis media Marked improved today I changed doxycycline to amoxicillin which is a first line treatment for otitis media DISCHARGE MEDICATIONS: Please see below. ALLERGIES: Please see below. PHYSICAL EXAMINATION ON DISCHARGE: VITAL SIGNS: Please see below. GENERAL APPEARANCE: NAD HEENT: no scleral icterus, no JVD, EOMI, no inflammation seen in the right ear CARDIOVASCULAR: S1S2 LUNGS: CTA ABDOMEN: soft & not tender w palpitation MUSCULOSKELETAL: no cyanosis, no swelling INTEGUMENT: no generalized pallor NEUROLOGICAL: cranial nerve function from 2-12 intact intact, follows commands, speech not dysarthric LABORATORY DATA: Please see below. IMAGING: See above PROGNOSIS: Fair ACTIVITY: [As tolerated]. DIET: Regular DISCHARGE INSTRUCTIONS: Soft mechanical diet tomorrow ITEMS TO FOLLOWUP ON ON OUTPATIENT: Follow-up with surgical team in one week DISCHARGE CONDITION: [Stable]. TIME SPENT ON DISCHARGE:40 minutes. Vital Signs/I&Os Vital Signs Date Time Temp Pulse Resp B/P (MAP) Pulse Ox O2 Delivery O2 Flow Rate FiO2 06/24/20 14:00 97.9 80 18 113/70 (84) 98 Room Air I&O- Last 24 Hours up to 6 AM 06/24/20 06:00 Intake Total 2600 ml Output Total 0 ml Balance 2600 ml Laboratory Data Labs 24H Laboratory Tests 2 06/24/20 06:04: Immature Granulocyte % (Auto) 0.3, Neutrophils (%) (Auto) 79.5H, Lymphocytes (%) (Auto) 14.6L, Monocytes (%) (Auto) 5.5, Eosinophils (%) (Auto) 0.0, Basophils (%) (Auto) 0.1, Neutrophils # (Auto) 6.2, Lymphocytes # (Auto) 1.1L, Monocytes # (Auto) 0.4, Eosinophils # (Auto) 0.0, Basophils # (Auto) 0.0, Nucleated Red Blood Cells % (auto) 0.0, Anion Gap 4L, Glomerular Filtration Rate 58.7, Calcium Level 8.6L, Magnesium Level 1.9, Total Bilirubin 0.4, Aspartate Amino Transf (AST/SGOT) 32, Alanine Aminotransferase (ALT/SGPT) 108H, Alkaline Phosphatase 74, Total Protein 6.2L, Albumin 3.1L, Albumin/Globulin Ratio 1.0L CBC/BMP Laboratory Tests 06/24/20 06:04 Microbiology Microbiology 06/21/20 Blood Culture - Preliminary, Resulted No Growth after 48 hours. All Specime... 06/21/20 Blood Culture - Preliminary, Resulted No Growth after 48 hours. All Specime... Discharge Medications Scheduled Amoxicillin/Potassium Clav (Amox-Clav 875-125 mg Tablet) 1 Each Tablet, 875 MG PO BID Spironolactone (Spironolactone) 25 Mg Tablet, 75 MG PO DAILY, (Reported) ON HOLD SINCE STARTING DOXYCYCLINE Scheduled PRN Acetaminophen (Acetaminophen) 325 Mg Tablet, 650 MG PO Q4H PRN for PAIN OR FEVER Allergies Coded Allergies: zinc (Verified Adverse Reaction, Mild, vomiting, 06/21/20) MONICA CONDE DO Jun 24, 2020 15:43
== END 2020-06-24 15:41 | disposition home or self-care (01) | DRG 408 ==
LOC: M ED 12:46 → M ED INP 15:58 → ENRESERV 16:29 → M MSPAV 17:44
PROVIDERS: ADMIT Internal Medicine; ATTEND Internal Medicine
PROC: 0FC44ZZ Extirpation of Matter from Gallbladder, Percutaneous Endoscopic Approach (ICD-10-PCS; principal; 2020-06-23 14:00)
PROC: 0FT44ZZ Resection of Gallbladder, Percutaneous Endoscopic Approach (ICD-10-PCS; 2020-06-24)
PROC: 8E0W4CZ Robotic Assisted Procedure of Trunk Region, Percutaneous Endoscopic Approach (ICD-10-PCS; 2020-06-24)
DX: K80.00 Calculus of gallbladder with acute cholecystitis without obstruction (principal); K85.90 Acute pancreatitis without necrosis or infection, unspecified; Z87.891 Personal history of nicotine dependence; Z79.899 Other long term (current) drug therapy

== ENCOUNTER → 2020-11-03 | Outpatient (CLI) | payer OTHER ==
[~2020-11-03] MED LIST: ACET1TAB55 PO; AMOX875T2 PO; DOXY100C PO; MINO100C80 PO; SPIR-10 PO
--- NOTE | 2020-11-03 15:58 | REP ---
INDICATION: GANGLION. COMPARISON: None. TECHNIQUE: Four views FINDINGS: There is no acute fracture or destructive osseous lesion. Degenerative changes seen involving the 1st carpometacarpal joint. A 9 mm size calcification is seen proximal to the trapezium. IMPRESSION: No acute bony abnormality. <Electronically signed by Surya Turner > 11/03/20 [id number]
--- NOTE | 2020-11-03 15:59 | REP ---
INDICATION: GANGLION. COMPARISON: None. TECHNIQUE: Four views FINDINGS: Mild degenerative change seen throughout the hand. There is no acute fracture or destructive osseous lesion. Chronic changes are seen in the wrist. See the wrist report made same day. IMPRESSION: No acute bony abnormality. Chronic changes as described above. <Electronically signed by Surya Turner > 11/03/20 1528
== END ==
LOC: M SOG 15:30
PROVIDERS: ATTEND Orthopaedic Surgery Sports Medicine
DX: M67.431 Ganglion, right wrist (principal)

== ENCOUNTER → 2020-11-17 | Outpatient (CLI) | payer OTHER ==
[~2020-11-17] MED LIST changes: -DOXY100C PO; +DOXY100C3 PO
--- NOTE | 2020-11-17 16:21 | REP ---
INDICATION: GANGLION RT WRIST. COMPARISON: None. TECHNIQUE: Routine unenhanced scans FINDINGS: There is a multiloculated 1.5 x 1.5 x 1.8 cm ganglion cyst adjacent to the distal radius on the ventral aspect. There is an effusion of the wrist. There is degenerative change of the 1st metacarpal carpal joint with marrow edema in the trapezium cystic areas in the base of the 1st metacarpal and lateral subluxation and spurring of the 1st metacarpal base. The flexor and extensor tendons are intact. The scapholunate and lunotriquetral ligaments are intact. The triangular fibrocartilage shows no evidence of tear. IMPRESSION: 1.5 x 1.5 x 1.8 cm multiloculated ganglion cyst ventral aspect of the wrist adjacent to the distal radius. Degenerative changes 1st metacarpal-carpal joint. Joint effusion. <Electronically signed by Alcides Hooker > 11/17/20 [id number]
== END ==
LOC: M PLAIMG 15:27
PROVIDERS: ATTEND Orthopaedic Surgery Sports Medicine
DX: M67.431 Ganglion, right wrist (principal); M18.11 Unilateral primary osteoarthritis of first carpometacarpal joint, right hand; M25.431 Effusion, right wrist

== ENCOUNTER → 2020-11-28 | Outpatient (CLI) | payer OTHER ==
--- NOTE | 2020-11-28 16:47 | REP ---
INDICATION: NICOTINE DEPENDENCE. COMPARISON: None. TECHNIQUE: Axial noncontrast images from the thoracic inlet to the upper abdomen using low-dose lung screening technique (LDCT). As per the protocol only lung window images were sent to the read station for interpretation. FINDINGS: There is evidence of mild biapical pleuroparenchymal scarring. There is a very subtle ground-glass opacity in the superior segment of the right lower lobe which measures 1.6 cm. The lung montes are otherwise clear. Grossly, the mediastinum and pulmonary devonte are within normal limits. Grossly, the imaged upper abdomen and imaged osseous structures are within normal limits. IMPRESSION: Lung rads category 4 a. right lower lobe ground-glass opacity as described above. Three-month follow-up chest CT recommended. <Electronically signed by Surya Turner > 11/28/20 [id number]
== END ==
LOC: M RAD 15:52
PROVIDERS: ATTEND Nurse Practitioner Family
DX: Z12.2 Encounter for screening for malignant neoplasm of respiratory organs (principal); F17.210 Nicotine dependence, cigarettes, uncomplicated; R91.8 Other nonspecific abnormal finding of lung field

== ENCOUNTER → 2021-01-02 | Outpatient (CLI) | payer OTHER ==
--- NOTE | 2021-01-10 11:09 | REPMRS ---
Patient History The patient states she had a clinical breast exam in October 2020. Patient is postmenopausal. Family history of unknown cancer in mother. Calling for priors @ [facility] No breast complaints today Patient signed the MRS sheet 1st covid vaccine 04/14/20-right arm -Moderna 2nd covid vaccine 05/12/20-right arm Patient Identification Verified Digital Woman Screen Mammo: January 02, 2021 - Exam #: [id number] Bilateral CC and MLO view(s) were taken. Technologist: Kristy Shabazz, Technologist Prior study comparison: October 11, 2014, digital mammo diagnostic bilateral, performed at [facility]. September 27, 2014, bilateral digital mammo screening bilat, performed at [facility]. FINDINGS: There are scattered fibroglandular densities. The Volpara volumetric breast density category is:B. There has been no change in the appearance of the mammogram from the prior studies. There is a mild amount of scattered fibroglandular density which is fairly symmetric. There is no interval development of dominant mass, architectural distortion, or grouped microcalcification suggestive of malignancy. 3-D tomosynthesis shows no additional findings. Assessment: BI-RADS/ACR category 1 mammogram. Negative Mammogram. Recommendation Routine screening mammogram of both breasts in 1 year (for women over age 40). This patient's [facility] Lifetime Breast Cancer Risk is estimated at 4.6 %. This mammogram was interpreted with the aid of an FDA-approved computer-aided dectection system. Electronically Signed By: Lupillo Osei MD 01/10/21 [id number]
== END ==
LOC: M WHC 08:44
PROVIDERS: ATTEND Nurse Practitioner Family
DX: Z12.31 Encounter for screening mammogram for malignant neoplasm of breast (principal); Z80.9 Family history of malignant neoplasm, unspecified

== ENCOUNTER → 2021-01-18 | Outpatient (REF) | payer OTHER | LOC: M LAB REF 17:22 | PROVIDERS: ATTEND Nurse Practitioner Family | DX: Z12.4 Encounter for screening for malignant neoplasm of cervix (principal) | CPT/HCPCS: 87624; G0123 ==

== ENCOUNTER → 2022-02-12 | Outpatient (REF) | payer BC | LOC: M SFHCDERM 17:25 | PROVIDERS: ATTEND Physician Assistant | DX: C43.4 Malignant melanoma of scalp and neck (principal) ==

== ENCOUNTER → 2022-04-16 | Outpatient (CLI) | payer BC | LOC: M LABSMTC 11:46 | PROVIDERS: ATTEND Physician Assistant | DX: Z01.812 Encounter for preprocedural laboratory examination (principal); Z20.822 Contact with and (suspected) exposure to COVID-19 ==

== ENCOUNTER → 2022-04-30 | Outpatient (CLI) | payer BC | LOC: M LABSMTC 11:13 | PROVIDERS: ATTEND Physician Assistant Surgical | DX: Z01.812 Encounter for preprocedural laboratory examination (principal); Z20.822 Contact with and (suspected) exposure to COVID-19 ==

== ENCOUNTER → 2022-12-13 | Outpatient (CLI) | payer BC ==
[~2022-12-13] MED LIST changes: +COLA100C5 PO; +ISOVUE-370 76% 100ML VIAL As Ordered ONE; +LEVO100T5 PO; +LEVO75TA4 PO; +MINO100C4 PO; +NIFE10CA2 PO; +SPIR50TA4 PO; +SYNT50TA PO
== END ==
LOC: M RAD 08:01
PROVIDERS: ATTEND Nurse Practitioner
DX: C43.4 Malignant melanoma of scalp and neck (principal)
CPT/HCPCS: 70470; 70491; 71260; Q9967

== ENCOUNTER → 2023-08-12 | Outpatient (CLI) | payer BC ==
[~2023-08-12] MED LIST changes: +CIPR7.5D2 OT; -ISOVUE-370 76% 100ML VIAL As Ordered ONE; +LEVO125T4 PO; +LEVO150T7; +LEVO150T7 PO
== END ==
LOC: M PLARAD 12:38
PROVIDERS: ATTEND Nurse Practitioner
DX: C43.4 Malignant melanoma of scalp and neck (principal)
CPT/HCPCS: 78816; A9552

== ENCOUNTER → 2023-08-28 | Outpatient (REF) | payer BC | LOC: M LAB REF 14:43 | PROVIDERS: ATTEND Nurse Practitioner Family | DX: L02.31 Cutaneous abscess of buttock (principal) ==

== ENCOUNTER → 2023-09-25 | Outpatient (CLI) | payer BC ==
[2023-09-25 11:13] LABS: THYROID STIMULATING HORMONE 0.456 uIU/ML (0.55-4.78)
[2023-09-25 11:14] LABS: FREE T4 1.72 NG/DL (0.89-1.76)
== END ==
LOC: M WUC 08:23
PROVIDERS: ATTEND Nurse Practitioner Family
DX: E03.9 Hypothyroidism, unspecified (principal)

== ENCOUNTER → 2023-09-25 | Outpatient (CLI) | payer BC ==
[2023-09-25 11:01] LABS: BASO # 0.1 10^3/uL (0.0-0.2); BASO % 0.7 % (0.0-1.0); EOS # 0.3 10^3/uL (0.0-0.5); EOS % 3.7 % (0.0-3.0); HEMATOCRIT 45.8 % (36.0-47.0); HEMOGLOBIN 14.8 g/dl (12.0-15.5); LYMPH # 1.8 10^3/uL (1.5-5.0); MEAN CORPUSCULAR HEMOGLOBIN 31.2 pg (27.0-33.0); MEAN CORPUSCULAR HGB CONC 32.3 g/dl (32.0-36.5); MEAN CORPUSCULAR VOLUME 96.6 fl (80.0-96.0); MONO # 0.6 10^3/uL (0.0-0.8); NEUTROPHILS # 4.8 10^3/uL (1.5-8.5); NEUTROPHILS % 63.2 % (36.0-66.0); PLATELET COUNT, AUTOMATED 211 10^3/uL (150-450); RED BLOOD COUNT 4.74 10^6/uL (4.00-5.40); WHITE BLOOD COUNT 7.6 10^3/uL (4.0-10.0)
[2023-09-25 11:09] LABS: ALBUMIN 3.6 G/DL (3.2-5.2); BILIRUBIN,TOTAL 0.4 MG/DL (0.3-1.2); CALCIUM LEVEL 9.6 MG/DL (8.3-10.6); CHOLESTEROL RISK RATIO 4.48 (<5); CREATININE FOR GFR 1.48 MG/DL (0.55-1.30); GLOMERULAR FILTRATION RATE 37.8 (>45); HDL CHOLESTEROL 40.6 MG/DL (>40); NON-HDL-C 141.4 MG/DL; POTASSIUM SERUM 4.4 MMOL/L (3.5-5.1); TOTAL PROTEIN 6.2 G/DL (5.7-8.2)
== END ==
LOC: M WUC 08:21
PROVIDERS: ATTEND Nurse Practitioner Family
DX: Z00.00 Encounter for general adult medical examination without abnormal findings (principal)

== ENCOUNTER → 2023-10-15 | Outpatient (REF) | payer BC | LOC: M SFHCDERM 17:36 | PROVIDERS: ATTEND Physician Assistant | DX: D48.9 Neoplasm of uncertain behavior, unspecified (principal) ==

== ENCOUNTER → 2024-03-09 | Outpatient (CLI) | payer BC ==
[~2024-03-09] MED LIST changes: +MINO-13 PO; -MINO100C80 PO; -NIFE10CA2 PO; +NIFE10CA61 PO
[2024-03-09 12:56] LABS: CALCIUM LEVEL 9.7 MG/DL (8.3-10.6); CREATININE FOR GFR 1.46 MG/DL (0.55-1.30); GLOMERULAR FILTRATION RATE 38.4 (>45); POTASSIUM SERUM 4.3 MMOL/L (3.5-5.1)
== END ==
LOC: M LAB 11:57
PROVIDERS: ATTEND Nurse Practitioner Family
DX: N18.30 Chronic kidney disease, stage 3 unspecified (principal)

== ENCOUNTER → 2024-03-09 | Outpatient (CLI) | payer BC, OTHER | LOC: M RAD 11:55 | PROVIDERS: ATTEND Internal Medicine Medical Oncology | DX: C43.9 Malignant melanoma of skin, unspecified (principal); Z90.49 Acquired absence of other specified parts of digestive tract; K57.30 Diverticulosis of large intestine without perforation or abscess without bleeding; Z90.710 Acquired absence of both cervix and uterus ==

== ENCOUNTER → 2024-03-27 | Outpatient (CLI) | payer BC ==
[~2024-03-27] MED LIST changes: +PROHANCE 279.3MG/ML 15ML VIAL As Ordered ONE
== END ==
LOC: M RAD 12:23
PROVIDERS: ATTEND Internal Medicine Medical Oncology
DX: C43.9 Malignant melanoma of skin, unspecified (principal)
CPT/HCPCS: 70553; A9576

== ENCOUNTER → 2024-07-10 | Outpatient (CLI) | payer BC, OTHER ==
[~2024-07-10] MED LIST changes: +LEVO112C PO; +MINO100C4; -PROHANCE 279.3MG/ML 15ML VIAL As Ordered ONE
== END ==
LOC: M PLARAD 13:41
DX: Z85.820 Personal history of malignant melanoma of skin (principal)

== ENCOUNTER → 2024-07-17 | Outpatient (REF) | payer BC ==
[2024-07-17 18:04] LABS: TOTAL PROTEIN,RANDOM URINE 18.6 MG/DL (0.0-14.0)
[2024-07-19 08:52] LABS: PROTEIN, TOTAL SO 6.8 g/dL (6.1-8.1)
== END ==
LOC: M LAB REF 17:04
PROVIDERS: ATTEND Internal Medicine Nephrology
DX: N18.32 Chronic kidney disease, stage 3b (principal)